=== PATIENT | female | born 1985 | race Caucasian/White ===

== ENCOUNTER 2017-01-19 19:55 | Emergency (ER) | payer MEDICAID ==
[~2017-01-19] VITALS: Ht 180.3 cm; Wt 108.9 kg
[~2017-01-19 19:55] MED LIST: AMOX-358 PO; AZIT250T PO; AZIT250T5 PO; BUDE10.2 IH; CODE118S2 PO; FLUC150T PO; HYDR-3062 PO; HYDR-757 PO; IBUP-2055 PO; LEVO500T2 PO; PRD20T PO; RT-ALBUINH IH
--- NOTE | 2017-01-19 20:14 | ED Upper Extremity ---
General Chief Complaint: Upper Extremity Stated Complaint: LT HAND/WRIST PAIN Source: patient Exam Limitations: no limitations History of Present Illness Time seen by provider: 20:11 Initial Comments To ER with bruising to the left hand, pain in the left hand and left forearm and pain in the back of her head after she slipped and fell on one of her daughters toys at home. She complains of a headache and dizziness Onset: this evening Severity: moderate Pain/Injury Location: left forearm, left wrist Modifying Factors: Worse With Movement Allergies and Home Medications Allergies Coded Allergies: No Known Drug Allergies (Unverified , 03/26/15) Home Medications Albuterol Sulfate 8.5 Gm Hfa.aer.ad, 1-2 PUFF IH PRN, (Reported) Budesonide/Formoterol Fumarate 10.2 Gm Hfa.aer.ad, 2 PUFF IH BID, (Reported) Lisinopril 5 Mg Tablet, #30 (Reported) [Benadryl] , (Reported) Time Seen by Provider: 20:11 Constitutional: see HPI EENTM: see HPI Respiratory: no symptoms reported Cardiovascular: no symptoms reported Genitourinary: no symptoms reported Musculoskeletal: see HPI Skin: no symptoms reported Psychiatric/Neurological: No Symptoms Reported Past Ncjybai-Suzzhy-Tdidjf Hx Patient Social History Alcohol Use: Denies Use Recreational Drug Use: No Smoking Status: Current Everyday Smoker Type Used: Cigarettes 2nd Hand Smoke Exposure: Yes Recent Foreign Travel: No Contact w/Someone Who Travel: No Recent Hopitalizations: No Immunizations Up To Date Tetanus Booster (TDap): Unknown Seasonal Allergies Seasonal Allergies: Yes Surgeries HX Surgeries: Yes Surgeries: Tonsillectomy Respiratory Hx Respiratory Disorders: Yes Respiratory Disorders: Asthma Cardiovascular Hx Cardiac Disorders: No Neurological Hx Neurological Disorders: No Reproductive System Hx Reproductive Disorders: No IT RECRUITER History: Tubal Ligation Genitourinary Hx Genitourinary Disorders: No Gastrointestinal Hx Gastrointestinal Disorders: No Musculoskeletal Hx Musculoskeletal Disorders: Yes Musculoskeletal Disorders: Chronic Back Pain Endocrine Hx Endocrine Disorders: No HEENT HX ENT Disorders: No Cancer Hx Cancer: No Psychosocial Hx Psychiatric Problems: No Integumentary HX Skin/Integumentary Disorder: No Blood Transfusions Hx Blood Disorders: No Adverse Reaction to a Blood Tr: No Family Medical History Significant Family History: No Pertinent Family Hx Physical Exam Vital Signs Vital Sign - Last 12Hours 01/19/17 20:02 Temp 97.5 Pulse 86 Resp 20 B/P (MAP) 153/74 Pulse Ox 97 O2 Delivery Room Air Capillary Refill : General Appearance: WD/WN, no apparent distress HEENT: PERRL/EOMI, normal ENT inspection Neck: non-tender, full range of motion Respiratory: no respiratory distress, no accessory muscle use Gastrointestinal: normal bowel sounds, non tender, soft Shoulder: normal inspection, non-tender, No asymmetry, No deformity, No ecchymosis, pain, soft tissue tenderness Elbow/Forearm: Left, pain (there is no ecchymosis, deformity, abrasion) Wrist: Yes normal inspection, Yes non-tender, Yes no evidence of injury Hand: Left, ecchymosis (ecchymosis to the dorsal aspect left hand), limited ROM Neurologic/Psychiatric: alert, normal mood/affect, oriented x 3 Skin: normal color, warm/dry Progress/Results/Core Measures Results/Orders My Orders Orders - MADHURI LEE APRN Hand, Left, 3 Views (01/19/17 20:04) Forearm, Left, 2 Views (01/19/17 20:04) Ct Head Wo (01/19/17 20:04) Vital Signs/I&O Vital Sign - Last 12Hours 01/19/17 01/19/17 20:02 21:00 Temp 97.5 97.5 Pulse 86 86 Resp 20 20 B/P (MAP) 153/74 Pulse Ox 97 97 O2 Delivery Room Air Departure Impression Impression: Primary Impression: Hand contusion Additional Impression: Mild concussion Disposition: 01 HOME, SELF-CARE Condition: Stable Departure-Patient Inst. Decision time for Depature: 20:13 Referrals: [facility] (PCP) Primary Care Physician MONTSERRAT YANG (Family) Primary Care Physician Patient Instructions: Hand Pain (DC) Add. Discharge Instructions: 1. Tylenol Motrin for pain 2. Return to ER for any concerns 3. All discharge instructions reviewed with patient and/or family. Voiced understanding. MADHURI LEE APRN Jan 19, 2017 20:14
[2017-01-19] MEDS ORDERED: Benadryl (20:19)
[2017-01-19] MEDS ORDERED: LISI-556 (20:19)
--- NOTE | 2017-01-19 20:22 | Diagnostic Imaging Report ---
PROCEDURE: CT head without contrast. TECHNIQUE: Multiple contiguous axial images were obtained through the brain without the use of intravenous contrast. INDICATION: Fall, hit head on ground. FINDINGS: The ventricles and cortical gyral pattern are normal. There is no intracranial hemorrhage. No mass effect. No extra-axial fluid collection. Basal cisterns are clear. Mastoid air cells and paranasal sinuses are clear. Bone windows show no evidence of calvarial fractures. IMPRESSION: Negative CT scan of the head without contrast. Dictated by: Dictated on workstation # [id number]
--- NOTE | 2017-01-19 20:35 | Diagnostic Imaging Report ---
INDICATION: Fall. FINDINGS: 3 views of the hand show no fractures, dislocations or other bony abnormalities. IMPRESSION: Negative left hand. Dictated by: Dictated on workstation # [id number]
--- NOTE | 2017-01-19 20:55 | Diagnostic Imaging Report ---
INDICATION: Trauma. FINDINGS: Two views show the radius and ulna to be intact. Radial head and olecranon process are in good alignment with the capitellum and trochlea. Radiocarpal joint is in good alignment. IMPRESSION: Normal left forearm. Dictated by: Dictated on workstation # [id number]
[2017-01-19 21:00] VITALS: BP 153/74
== END 2017-01-19 21:00 | disposition home or self-care (01) ==
LOC: EDUNIT# 19:55 → ER 19:59
DX: S06.0X9A Concussion with loss of consciousness of unspecified duration, initial encounter (principal); S60.222A Contusion of left hand, initial encounter; F17.210 Nicotine dependence, cigarettes, uncomplicated; W18.31XA Fall on same level due to stepping on an object, initial encounter; Y92.89 Other specified places as the place of occurrence of the external cause
CPT/HCPCS: 70450; 73090; 73130; 99282

== ENCOUNTER 2017-03-13 22:51 | Emergency (ER) | payer MEDICAID ==
[~2017-03-13] VITALS: Ht 180.3 cm; Wt 113.4 kg
[~2017-03-13 22:51] MED LIST changes: +AZIT250T12 PO; -AZIT250T5 PO; +Benadryl; +LISI-556
[2017-03-13] MEDS ORDERED: BENZ200C51 PO (23:57)
--- NOTE | 2017-03-13 23:57 | ED Cough/URI ---
General Chief Complaint: Cough/Cold/Flu Symptoms Stated Complaint: POSS PNEUMONIA Nursing Triage Note: PT TO ED FOR C/O COUGH, CONGESTION, GENERALIZED BODY ACHES ALL ONSET AFTER HAVING A "HEAD COLD" FOR "A COUPLE OF DAYS". Source: patient Exam Limitations: no limitations History of Present Illness Time seen by provider: 23:00 Initial Comments This 31-year-old woman presents to the emergency room with primary complaint of cough. Symptoms started with congestion a couple of days ago and progressed to intense cough sometimes followed by posttussive emesis. She feels weak, dizzy, fatigued. She has chest discomfort with inspiration and cough. She uses albuterol and Symbicort at home. She has had subjective fever and chills and wonders if she has pneumonia. She has taken ibuprofen, Mucinex, Tessalon Perles without much benefit. She continues to smoke. She does have some sinus pressure and post nasal drip. Allergies and Home Medications Allergies Coded Allergies: No Known Drug Allergies (Unverified , 03/26/15) Home Medications Albuterol Sulfate 8.5 Gm Hfa.aer.ad, 1-2 PUFF IH PRN, (Reported) Benzonatate 200 Mg Capsule, 200 MG PO TID PRN for COUGH, #20 Prescribed by: MYRANDA RAO on 03/13/17 3567 Budesonide/Formoterol Fumarate 10.2 Gm Hfa.aer.ad, 2 PUFF IH BID, (Reported) Lisinopril 5 Mg Tablet, #30 (Reported) [Benadryl] , (Reported) Constitutional: see HPI EENTM: see HPI Respiratory: see HPI Cardiovascular: no symptoms reported Gastrointestinal: see HPI Genitourinary: no symptoms reported : No Musculoskeletal: no symptoms reported Skin: no symptoms reported Psychiatric/Neurological: No Symptoms Reported Hematologic/Lymphatic: No Symptoms Reported Past Eozwdue-Qaqzdl-Tmglhn Hx Patient Social History Alcohol Use: Denies Use Recreational Drug Use: No Smoking Status: Current Someday Smoker Type Used: Cigarettes 2nd Hand Smoke Exposure: Yes Recent Foreign Travel: No Contact w/Someone Who Travel: No Recent Infectious Disease Expo: No Recent Hopitalizations: No Immunizations Up To Date Tetanus Booster (TDap): Unknown Seasonal Allergies Seasonal Allergies: Yes Surgeries HX Surgeries: Yes (E sure procedure) Surgeries: Tonsillectomy Respiratory Hx Respiratory Disorders: Yes Respiratory Disorders: Asthma Cardiovascular Hx Cardiac Disorders: Yes Cardiac Disorders: Hypertension Neurological Hx Neurological Disorders: No Reproductive System : No Hx Reproductive Disorders: No CROP PICKER History: Tubal Ligation (Eashwer procedure) Genitourinary Hx Genitourinary Disorders: No Gastrointestinal Hx Gastrointestinal Disorders: No Musculoskeletal Hx Musculoskeletal Disorders: Yes Musculoskeletal Disorders: Arthritis, Chronic Back Pain Endocrine Hx Endocrine Disorders: Yes (prediabetes) Endocrine Disorders: Lupus (unofficial diagnosis) HEENT HX ENT Disorders: No Cancer Hx Cancer: No Psychosocial Hx Psychiatric Problems: No Integumentary HX Skin/Integumentary Disorder: No Blood Transfusions Hx Blood Disorders: No Adverse Reaction to a Blood Tr: No Family Medical History Significant Family History: No Pertinent Family Hx Physical Exam Vital Signs Vital Sign - Last 12Hours 03/13/17 23:06 Temp 98.5 Pulse 74 Resp 20 B/P (MAP) 135/85 Pulse Ox 99 O2 Delivery Room Air Capillary Refill : Less Than 3 Seconds General Appearance: WD/WN, mild distress HEENT: PERRL/EOMI, normal ENT inspection, TMs normal, pharyngeal erythema Neck: normal inspection Respiratory: no respiratory distress, no accessory muscle use, wheezing ( subtle wheezing and lower lung reyes. No wheezing with forced expiration. Minimal delay in expiratory phase.) Cardiovascular: regular rate, rhythm, no edema, no murmur Gastrointestinal: normal bowel sounds, non tender, soft Extremities: normal inspection, no pedal edema Neurologic/Psychiatric: broom maker II-XII nml as tested, no motor/sensory deficits, alert, normal mood/affect, oriented x 3 Skin: normal color, warm/dry Progress/Results/Core Measures Results/Orders My Orders Orders - MYRANDA MACKEY MD Chest Pa/Lat (2 View) (03/13/17 23:19) Promethazine/ Codeine Syrup (Phenergan W (03/14/17 00:00) Medications Given in ED Current Medications Medications Dose Ordered Sig/Tano Route Start Time Stop Time Status Last Admin Dose Admin Promethazine HCl/ Codeine 5 ml ONCE ONCE PO 03/14/17 00:00 03/14/17 00:02 DC 03/13/17 23:57 5 ML Vital Signs/I&O Vital Sign - Last 12Hours 03/13/17 23:06 Temp 98.5 Pulse 74 Resp 20 B/P (MAP) 135/85 Pulse Ox 99 O2 Delivery Room Air Blood Pressure Mean: 102 Progress Note : Progress Note Patient was given a dose of promethazine with codeine. Chest x-ray was unremarkable. Diagnostic Imaging Diagonstic Imaging: Xray Plain Films/CT/US/NM/MRI: chest Comments Chest x-ray viewed by me. Report not yet available. No acute abnormalities appreciated. Departure Impression Impression: Primary Impression: Acute bronchitis Qualified Codes: J20.9 - Acute bronchitis, unspecified Disposition: 01 HOME, SELF-CARE Condition: Stable Departure-Patient Inst. Decision time for Depature: 23:45 Referrals: [facility] (PCP) Primary Care Physician MONTSERRAT YANG (Family) Primary Care Physician Patient Instructions: Acute Bronchitis, Adult (DC) Add. Discharge Instructions: Continue using your inhalers as prescribed. You may use Tylenol and/or ibuprofen for pain. Discontinue use of cigarettes and switch to an alternative form of nicotine such as patches or lozenges. You may use [id number]-[id number] cough suppressants with dextromethorphan (DM). You may also use the Tessalon Perles as prescribed. Follow-up with your primary care provider if not improving or symptoms worsen. All discharge instructions reviewed with patient and/or family. Voiced understanding. Scripts Benzonatate (Benzonatate) 200 Mg Capsule 200 MG PO TID Y for COUGH, #20 CAP Prov: MYRANDA MACKEY MD 03/13/17 MYRANDA MACKEY MD Mar 13, 2017 23:57
[2017-03-14] MEDS ORDERED: PROMETHAZINE/ CODEINE SYRUP 5 ML UDC PO ONE
[2017-03-14 00:03] VITALS: BP 136/79
--- NOTE | 2017-03-14 05:53 | Diagnostic Imaging Report ---
EXAM: CHEST PA/LAT (2 VIEW) INDICATION: Cough. COMPARISON: Chest radiograph 07/01/2016. FINDINGS: Normal heart size and pulmonary vascularity. Lungs are well expanded. No focal pulmonary opacity, pleural effusion or pneumothorax. Osseous structures are unremarkable. IMPRESSION: Negative chest. Dictated by: Dictated on workstation # [id number]
== END 2017-03-14 00:03 | disposition home or self-care (01) ==
LOC: EDUNIT# 22:51 → ER 22:53
DX: J20.9 Acute bronchitis, unspecified (principal); J45.909 Unspecified asthma, uncomplicated; I10 Essential (primary) hypertension; M19.90 Unspecified osteoarthritis, unspecified site; F17.210 Nicotine dependence, cigarettes, uncomplicated; Z98.51 Tubal ligation status; Z90.89 Acquired absence of other organs
CPT/HCPCS: 71020; 99283

== ENCOUNTER → 2018-06-05 | Outpatient (CLI) | payer MEDICAID ==
[~2018-06-05] MED LIST changes: +BENZ200C51 PO; -CODE118S2 PO; +CODE118S4 PO; +HYDR-4226 PO; -HYDR-757 PO
--- NOTE | 2018-06-05 13:36 | Diagnostic Imaging Report ---
PROCEDURE: US Non-ob pelvis comp/trans. TECHNIQUE: Multiple realtime grayscale images were obtained of the pelvis in various projections endovaginally. Transabdominal imaging was also performed. INDICATION: Pelvic pain. FINDINGS: The uterus measures 8.7 x 6.8 x 4.8 cm. Endometrium is approximately 3 mm in thickness. No myometrial mass is identified. Left ovary cannot be visualized due to bowel gas. Right ovary measures 3.5 x 3.7 x 3.3 cm. There is blood flow to the right ovary. There is a 2.5 x 1.9 cm cyst involving the right ovary. No free fluid is seen. IMPRESSION: Small right ovarian cyst. The left ovary cannot be visualized. No other significant abnormality is seen. Dictated by: Dictated on workstation # [id number]
== END ==
LOC: RAD 12:06
PROVIDERS: ATTEND Nurse Practitioner
DX: N83.201 Unspecified ovarian cyst, right side (principal)
CPT/HCPCS: 76830; 76856

== ENCOUNTER → 2018-09-01 | Outpatient (CLI) | payer MEDICAID ==
[~2018-09-01] MED LIST changes: +IOHEXOL 300 MG/ML 50 ML (OMNIPAQUE 300) VIAL IV ONE; +RECEIVED CONTRAST (Hold Metformin) IV SCH
--- NOTE | 2018-09-01 14:39 | Diagnostic Imaging Report ---
Indication: Patient with bilateral Essure devices within the fallopian tubes. Study is performed to evaluate for tubal occlusion. Procedure was performed by Dr. Kelle Proctor. Speculum was placed and cervical HSG catheter was inserted and a balloon was inflated. Approximately 5 cc of Omnipaque-300 contrast was injected under fluoroscopic observation. Spot films over the pelvis were obtained. Total of 55 seconds of fluoroscopy was utilized. Preliminary radiograph demonstrates a bilateral Essure devices within the pelvis. Post injection images demonstrate normal opacification of the endometrial canal. No contrast is identified in the fallopian tubes consistent with bilateral tubal occlusion. No filling defects are seen within the endometrial canal. Impression: Bilateral Essure devices creating bilateral tubal occlusion. Dictated by: Dictated on workstation # [id number]
== END ==
LOC: RAD 10:44
PROVIDERS: ATTEND Obstetrics & Gynecology
DX: N97.1 Female infertility of tubal origin (principal); Z97.5 Presence of (intrauterine) contraceptive device
CPT/HCPCS: 58340; 74740

== ENCOUNTER → 2018-09-14 | Outpatient (CLI) | payer MEDICAID ==
[~2018-09-14] VITALS: Ht 180.3 cm; Wt 127.6 kg
[~2018-09-14] MED LIST changes: +IBUP-1780 PO; -IOHEXOL 300 MG/ML 50 ML (OMNIPAQUE 300) VIAL IV ONE; +METF-397 PO; -RECEIVED CONTRAST (Hold Metformin) IV SCH
[2018-09-14 14:28] VITALS: BP 138/82
[2018-09-14 15:13] LABS: BASOPHILS # (AUTO) 0.1 10^3/uL (0.0-0.1); BASOPHILS % (AUTO) 1 % (0-10); EOSINOPHILS # (AUTO) 0.2 10^3/uL (0.0-0.3); EOSINOPHILS % (AUTO) 2 % (0-10); HEMATOCRIT 40 % (35-52); HEMOGLOBIN 13.6 G/DL (11.5-16.0); LYMPHOCYTES # (AUTO) 3.6 X 10^3 (1.0-4.0); LYMPHOCYTES % (AUTO) 33 % (12-44); MEAN CORPUSCULAR HEMOGLOBIN 32 PG (25-34); MEAN CORPUSCULAR HGB CONC 34 G/DL (32-36); MEAN CORPUSCULAR VOLUME 95 FL (80-99); MONOCYTES # (AUTO) 0.6 X 10^3 (0.0-1.0); MONOCYTES % (AUTO) 6 % (0-12); NEUTROPHILS # (AUTO) 6.5 X 10^3 (1.8-7.8); NEUTROPHILS % (AUTO) 59 % (42-75); PLATELET COUNT 271 10^3/uL (130-400); RED CELL DISTRIBUTION WIDTH 12.6 % (10.0-14.5)
[2018-09-14 15:17] LABS: BILIRUBIN,URINE NEGATIVE (NEGATIVE); CLARITY,URINE CLEAR; COLOR,URINE YELLOW; GLUCOSE, URINE (UA) NEGATIVE (NEGATIVE); KETONES,URINE NEGATIVE (NEGATIVE); LEUKOCYTE ESTERASE ,URINE 2+ (NEGATIVE); NITRITE,URINE POSITIVE (NEGATIVE); PH,URINE 5 (5-9); PROTEIN,URINE 1+ (NEGATIVE); UROBILINOGEN,URINE 1 MG/DL (NORMAL)
[2018-09-14 15:38] LABS: BACTERIA,URINE LARGE /HPF; RBC,URINE 0-2 /HPF
[2018-09-14 15:39] LABS: CALCIUM OXALATE CRYSTALS,UR FEW /LPF
== END ==
LOC: PREOP 14:12
PROVIDERS: ATTEND Obstetrics & Gynecology
DX: Z01.812 Encounter for preprocedural laboratory examination (principal); Z11.2 Encounter for screening for other bacterial diseases; N92.1 Excessive and frequent menstruation with irregular cycle
CPT/HCPCS: 36415; 81000; 85025; 86850; 86900; 86901; 87077; 87081; 87088

== ENCOUNTER 2018-09-19 07:05 | Day surgery (SDC) | payer MEDICAID ==
[~2018-09-19] VITALS: Ht 177.8 cm; Wt 123.9 kg
[2018-09-19] MEDS ORDERED: metroNIDAZOLE 500MG/100ML IVPB 100 ML IV ONE (07:15)
[2018-09-19] MEDS ORDERED: ceFAZolin INJECTION 1,000 MG VIAL IV ONE (07:15)
[2018-09-19] MEDS: LACTATED RINGERS 1,000 ML IV PRN ×2 (07:29→11:18)
[2018-09-19] MEDS ORDERED: MIDAZOLAM 2 MG/2 ML (VERSED) VIAL ONE (07:33)
[2018-09-19] MEDS ORDERED: LIDOCAINE PF 2% 5 ML (XYLOCAINE) VIAL ONE (07:33)
[2018-09-19] MEDS ORDERED: proPOfol 200 MG/20 ML (DIPRIVAN) VIAL IV ONE (07:33)
[2018-09-19] MEDS ORDERED: ONDANSETRON 4 MG/2 ML (SDV) Z0FRAN ONE (07:33)
[2018-09-19] MEDS ORDERED: ROCURONIUM 10 MG/ML 5 ML SYRINGE IV ONE ×2 (07:33→11:51)
[2018-09-19] MEDS ORDERED: fentaNYL INJECTION 100 MCG/2 ML AMP ONE (07:33)
[2018-09-19 07:39] VITALS: BP 126/71
[2018-09-19] MEDS ORDERED: SEVOFLURANE (ULTANE) 15 ML INHAL SOLN ONE ×12 (07:44→12:51)
[2018-09-19] MEDS ORDERED: NS (IVPB) 50 ML ONE (07:56)
[2018-09-19] MEDS ORDERED: NS (IVPB) 100 ML ONE (08:14)
[2018-09-19] MEDS ORDERED: VASOPRESSIN INJECTION 20 UNIT/ML VIAL ONE (08:14)
[2018-09-19] MEDS ORDERED: BUP/EPI 0.5% 1:200,000 (SENSORCAINE) 30 ML VIAL ONE (08:14)
[2018-09-19] MEDS ORDERED: ESTRADIOL VAGINAL CREAM 42.5 GM (ESTRACE) VG ONE (08:14)
[2018-09-19] MEDS ORDERED: DEXAMETHASONE 10 MG/ML (DECADRON) 1 ML VIAL ONE (10:38)
[2018-09-19] MEDS ORDERED: fentaNYL INJECTION 250 MCG/5 ML AMP ONE (11:52)
[2018-09-19] MEDS ORDERED: KETOROLAC 30 MG/ML VIAL ONE (12:50)
[2018-09-19] MEDS: KETOROLAC 30 MG/ML VIAL IV PRN ×2 (13:30→20:08)
[2018-09-19] MEDS ORDERED: SIMETHICONE 80 MG (MYLICON) CHEW PO PRN (13:45)
[2018-09-19] MEDS ORDERED: ONDANSETRON 4 MG/2 ML (SDV) Z0FRAN IV PRN (13:45)
[2018-09-19] MEDS ORDERED: HYDROmorphone 2 MG/ML VIAL (DILAUDID) IV PRN (13:45)
[2018-09-19] MEDS ORDERED: ZOLPIDEM 5 MG (AMBIEN) TAB PO PRN (13:45)
[2018-09-19] MEDS ORDERED: DOCUSATE SODIUM 100 MG (COLACE) CAP PO PRN (13:45)
[2018-09-19] MEDS ORDERED: morphine INJ 10 MG/ML 1ML (SYR OR VIAL) ONE (13:45)
[2018-09-19] MEDS ORDERED: ANTACID SUSP 30 ML UDC (MYLANTA) PO PRN (13:45)
--- NOTE | 2018-09-19 13:54 | Operative Report ---
Operative Report Date of Procedure/Surgery Sep 19, 2018 Surgeon (s) NEIL TORRES DO Window Machine Operator (s): Luisa Martinez APRN; saravanant nec to retract important neurovas structures Post-Operative Diagnosis Incomplete uterovaginal prolapse rectocele stress incontinence Essure Procedure Performed RaTH, bilateral salpingectomy, rectocele repair and perineorrhaphy, Solyx pubovaginal sling Description of Procedure Anesthesia Type: General Estimated blood loss (mL): 150 Specimen(s) collected/removed uterus, bilateral tubes Description of the Procedure After informed consent was obtained, patient was taken into the operating room where general anesthetic was found to be adequate. She was prepped and draped in the usual sterile fashion in the dorsal lithotomy position. A Pablo catheter was placed. A speculum was placed in the vagina. The cervix was visualized and was prolapsed to the introitus. The anterior lip was grasped with a sharp toothed tenaculum. The uterus was sounded and depth was approximately 10 centimeters. I placed the Melisa device. And then set the Melisa to 10 cm and a 3.5 cm collar was advanced over the cervix. I inserted the Melisa without difficulty, inflating the balloon and securing it around the fornix of the cervix. The collar was then secured with sutures at 12 o'clock. Attention was then turned to the patient's abdomen. A supraumbilical incision was made about 10 mm. A Veress needle was inserted and I had difficulty confirming intraabdominal placement, but was eventually able to confirm with a drop in pressure and the saline drop test. I then insufflated the abdomen to a maximum of 15 mmHg with warmed CO2 gas. I then placed an 8 mm trocar and then the Da Quiana camera and intraperitoneal placement was confirmed. I then determined the procedure could be continued robotically. The first robotic port was placed about 15 cm lateral to the right and left of the umbilical placement and slightly inferior. These are both 8 mm trocars. These were placed under direct visualization of the laparoscope. 0.25% Marcaine was injected prior to placement of all trocars. When all placements were confirmed, the patient was placed in steep Trendelenburg allowing adequate visualization and the robot was brought in for docking. The docking was accomplished without difficulty. A survey of the pelvis confirmed the above mentioned findings. The Essure devices were in the tube and there was minimal adhesion associated with this. I was able to visualize the round ligaments bilaterally and grasped them and cauterized with bipolar cautery and then cut with my blanca. At this point, I then did bilateral salpingectomy. I cut along the mesosalpinx with the monopolar blanca and then dissected up to the cornu bilaterally. I then moved to the uteroovarian ligaments. I sealed the vessel and transected bilaterally using the bipolar cautery and then cut with the monopolar blanca. I then moved my dissection to the posterior leaves of the broad ligament. I dissected the posterior leaves of the broad ligament off the uterine arteries skeletonizing them bilaterally. I then took a second clamp with the bipolar cautery and with the blanca, transected the vessels away from the lateral aspect to the cervical stroma. I dissected the anterior peritoneum off the lower uterine segment. I continually pushed the bladder back and I took excessively great care and I was eventually able to dissect the vesicouterine peritoneum off the lower uterine segment. I then dissected in a V fashion towards the midline between the uterosacral ligaments. This allowed me to skeletonize the uterine vessels bilaterally. The balloon on the MELISA was insufflated. This allowed me to see the MELISA circumferentially. I then performed a colpotomy anteriorly and then amputate with cervix away from the vaginal fornix. I then continued the colpotomy circumferentially. The assistant golf course superintendent removed the uterus through the vagina. A sponge was left in the vagina to maintain pneumoperitoneum. I then began closure of the vaginal cuff. The uterus was left in the vagina to maintain pneumoperitoneum. I closed the apices of the vaginal cuff with 2-0 Vicryl V lock sutures with a colposuspension through the uterosacral ligaments. This suspended the apices of the vaginal cuff. I extended this to the midline from both sides and overlapped the V lock sutures in the midline. Excellent closure is noted and hemostasis is achieved. She had a very deep enterocele. I now did a colpotomy but reducing the enterocele with two layers of the pursestring of 0-Vicryl closing the enterocele space and shortening the uterosacral ligaments bilaterally. All the needles were removed from the patient's abdomen. Patient was now repositioned for the vaginal portion of the procedure. Now, A 1 cm incision was made in the suburethral space with a scalpel about 1.5 cm from the urethral meatus. I dissected bilaterally to the obturator membranes and then inserted the Solyx bilaterally and then tightened under the midurethra. I did a cystoscopy which was negative. There was bilateral urethral efflux of urine. I then kept 300 ml in the bladder and did a Cred. There was minimal leakage. The sling laid gently under the urethra and was not too tight. There was no intravesicular pathology. The incision was closed with 4-0 Monocryl in a running fashion. Pablo was reinserted. At this point I did a rectocele repair. I grasped the perineum on either side of the midline with the Yanna clamps and then incised the perineum in the midline. I now injected with dilute vasopressin and then u undermined with Serrano scissors and then incised in the midline. I then dissected the pubovaginal fascia and then repaired the defect in the midline with 2-0 Vicryl in interrupted mattress type sutures reducing the defect. And then excised the excess epithelium and then made a pyramidal incision in the perineum. I now repaired the perineum with 3-0 vicryl and then repaired the posterior epithelial defect with 2-0 vicryl in running fashion. Vaginal pack with Estrace cream was placed. Patient was awakened and taken to the recovery room in stable condition. Following the case, instrument counts were correct. The patient was repositioned in the supine position and awakened from general anesthesia without difficulty. She was taken to recovery in stable condition. She will be observed overnight. Findings of the Procedure Essure in bilateral tubes enlarged boggy uterus 2-3+ rectocele with scarred perineum > 60 degree rotation of the urethra Allergies and Home Medications Allergies Coded Allergies: iodine (Verified Allergy, Mild, RASH, 09/14/18) Home Medications Acetaminophen 500 Mg Tablet, 1,000 MG PO Q8H Prescribed by: NEIL TORRES on 09/20/18 0837 Albuterol Sulfate 8.5 Gm Hfa.aer.ad, 1-2 PUFF IH PRN, (Reported) Docusate Sodium 100 Mg Capsule, 100 MG PO BID PRN for CONSTIPATION-1ST LINE Prescribed by: NEIL TORRES on 09/20/18 0837 Ibuprofen 600 Mg Tablet, 600 MG PO Q6H PRN for PAIN-MILD Prescribed by: NEIL TORRES on 09/20/18836 Metformin HCl 500 Mg Tablet, 500 MG PO BID, (Reported) [Oxycodone Hcl] 5 MG TAB, 5-10 MG PO Q4H PRN for PAIN-SEVERE 1-2 po q 4-6 hrs prn pain Prescribed by: NEIL TORRES on 09/20/18836 Patient Home Medication List Home Medication List Reviewed: Yes NEIL TORRES DO Sep 19, 2018 13:54
[2018-09-19] MEDS ORDERED: PROMETHAZINE INJ 25 MG/ML (PHENERGAN) AMP IVP ONE (14:00)
[2018-09-19] MEDS ORDERED: ONDANSETRON 4 MG/2 ML (SDV) Z0FRAN IVP PRN (14:00)
[2018-09-19] MEDS ORDERED: HYDROmorphone 2 MG/ML VIAL (DILAUDID) IV ONE (14:00)
[2018-09-19] MEDS ORDERED: MEPERIDINE (DEMEROL) INJ 50 MG/ML IVP ONE (14:00)
[2018-09-19] MEDS ORDERED: morphine INJ 10 MG/ML 1ML (SYR OR VIAL) IVP ONE (14:00)
--- NOTE | 2018-09-19 14:02 | Progress Note-Pre Operative ---
Pre-Operative Progress Note H&P Reviewed The H&P was reviewed, patient examined and no changes noted. Date Seen by Provider: Sep 19, 2018 Time Seen by Provider: 09:30 Date H&P Reviewed: Sep 19, 2018 Time H&P Reviewed: 09:00 Pre-Operative Diagnosis: chronic pain, incomplete uterovaginal prolapse, Alayna NEIL Livingston DO Sep 19, 2018 14:02
[2018-09-19] MEDS ORDERED: PROMETHAZINE INJ 25 MG/ML (PHENERGAN) AMP ONE (14:23)
--- NOTE | 2018-09-19 14:30 | NUR ---
pt transferred to room via bed with PACU staff @ side. report received from Arturo WOODSON. care assumed of pt.
--- NOTE | 2018-09-19 14:44 | Anesthesia-General Post-Op ---
General Patient Condition Mental Status/LOC: Same as Preop Cardiovascular: Satisfactory Nausea/Vomiting: Absent Respiratory: Satisfactory Pain: Controlled Complications: Absent Post Op Complications Complications None Follow Up Care/Instructions Patient Instructions None needed. Anesthesia/Patient Condition Patient Condition Patient is doing well, no complaints, stable vital signs, no apparent adverse anesthesia problems. EMIL LOPEZ DO Sep 19, 2018 14:44
[2018-09-19 14:45] VITALS: BP 121/76
--- NOTE | 2018-09-19 14:45 | NUR ---
initial assessment completed. see interventions for further. vs taken. lap sites x3, D/I. perry to DD with dark, yellow urine noted in chamber. SCD's to LE's.
[2018-09-19] MEDS: LACTATED RINGERS 1,000 ML IV SCH ×2 (14:58→22:48)
[2018-09-19] MEDS: ACETAMINOPHEN 500 MG TAB (TYLENOL) PO SCH (16:42)
--- NOTE | 2018-09-19 17:40 | NUR ---
pt assisted up to BR. requesting to have BM.
[2018-09-19 17:45] VITALS: BP 121/61
--- NOTE | 2018-09-19 17:45 | NUR ---
pt sitting up in bed, eating regular meal. family @ side.
--- NOTE | 2018-09-19 18:25 | NUR ---
was called about pt's request for catheter and vaginal packing to be d/c'd. instructed to keep packing and perry in until a.m.
--- NOTE | 2018-09-19 18:36 | NUR ---
reviewed POC with pt and family members. pt requesting to "go downstairs in wheel chair". pt states hx of smoker. informed pt of instability to leave floor r/t recent surgery. nicotine patch offered. refused, "I'm allergic".
--- NOTE | 2018-09-19 19:30 | NUR ---
report given to next shift.
[2018-09-19 20:08] VITALS: BP 117/62
--- NOTE | 2018-09-19 20:43 | NUR ---
Pt rings call light, pt reports not hitting call light while half out of bed. RN asks if pt needs help pt states "Well you can help if you want, I just didn't call you in here." Pt reports wanting leg portion of bed flat. RN pressing button to de-elevate the knees. Pt states, "Well now you're just undoing everything I did. Rodrigue, she doesn't know what shes doing come help me." RN states "Let me know when you need something." Rn exits room.
[2018-09-20] MEDS: ACETAMINOPHEN 500 MG TAB (TYLENOL) PO SCH ×2 (01:05→08:38)
[2018-09-20 01:06] VITALS: BP 104/65
[2018-09-20] MEDS ORDERED: KETOROLAC 30 MG/ML VIAL ONE (02:02)
[2018-09-20] MEDS: KETOROLAC 30 MG/ML VIAL IV PRN (02:13)
[2018-09-20 06:25] VITALS: BP 118/62
--- NOTE | 2018-09-20 06:25 | NUR ---
vag packing out in tact, no ss distress noted.
[2018-09-20] MEDS ORDERED: IBUPROFEN 600 MG (MOTRIN) TAB PO PRN (06:30)
[2018-09-20] MEDS: LACTATED RINGERS 1,000 ML IV SCH (06:46)
[2018-09-20 08:24] VITALS: BP 121/57
--- NOTE | 2018-09-20 08:24 | NUR ---
initial shift assessment completed, see interventions for further. pt reports voiding, 100cc urine noted in collected hat. pt requesting to smoke. IV site dc'd.
[2018-09-20] MEDS ORDERED: IBUP-844 PO (08:37)
[2018-09-20] MEDS ORDERED: Oxycodone Hcl PO (08:37)
[2018-09-20] MEDS ORDERED: DOCU100C37 PO (08:37)
[2018-09-20] MEDS ORDERED: ACET-77 PO (08:37)
--- NOTE | 2018-09-20 08:38 | NUR ---
here. dismissal orders received.
--- NOTE | 2018-09-20 08:39 | NUR ---
pt ambulates off unit with @ side.
--- NOTE | 2018-09-20 08:40 | Discharge Inst-Women's Service ---
Discharge Inst-Women's Serv Depart Medication/Instructions New, Converted or Re-Newed RX: RX on Chart Instructions no lifting over 25 lbs no driving for 1 week. nothing in the vagina for 12 weeks Final Diagnosis menorrhagia chronic pelvic pain Essure incomplete genital prolapse Stress incontinence Consults/Follow Up Additional Follow Up: Yes Activity Activity: Activity as Tolerated Driving Instructions: No Driving for 1 Week NO SMOKING: NO SMOKING Nothing Inside Vagina: No Douching, No [place], No Tampons Diet Discharge Diet: No Restrictions Symptoms to Report to : Swelling Increased, Bleeding Excessive, Pain Increased, Fever Over 101 Degrees F, Vaginal Bleeding Increase, Vaginal Discharge Foul For Any Problems or Questions: Contact Your Physician Skin/Wound Care Infection Signs and Symptoms: Increased Redness, Foul Odor of Wound, Increased Drainage, Skin Itchy or Has a Rash, Increased Swelling, Temperature Above 101 F Operative Area Clean and Dry: Do Not Remove Bandage Stitches/[place]/Dermabond: Dermabond Bathing Instructions: NEIL Nieves DO Sep 20, 2018 08:40
--- NOTE | 2018-09-20 08:42 | Progress Note-Standard ---
Standard Progress Note Progress Notes/Assess & Plan Date Seen by a Provider: Sep 20, 2018 Time Seen by a Provider: 08:40 Progress/Assessment & Plan Patient has voided and is ready to go home. 09/20/18 09/20/18 01:06 06:25 Temp 99.0 98.1 Pulse 74 84 Resp 18 18 B/P (MAP) 104/65 (78) 118/62 (80) Pulse Ox 97 96 O2 Delivery Room Air Room Air 09/20/18 00:00 Output Total 1725 ml Balance -1725 ml POD #1 s/p RaTH, bilateral salpingectomy, solyx PV sling and perineorrhaphy, rectocele repair. NEIL TORRES DO Sep 20, 2018 08:42
--- NOTE | 2018-09-20 09:05 | NUR ---
pt returned to room from smoking. c/o pain.
--- NOTE | 2018-09-20 09:37 | NUR ---
dismissal instructions given, pt reports understanding. reviewed follow up appointments and Rx's. signature page signed, placed on chart.
--- NOTE | 2018-09-20 09:45 | NUR ---
pt ambulated to private vehicle with this RN and @ side. pt stable with no sx's of distress noted.
== END 2018-09-20 09:45 | disposition home or self-care (01) ==
LOC: SDC 07:05 → WS 14:30 → SDC 09-20 09:45
PROVIDERS: ATTEND Obstetrics & Gynecology
DX: N81.2 Incomplete uterovaginal prolapse (principal); N92.1 Excessive and frequent menstruation with irregular cycle; N39.3 Stress incontinence (female) (male); N88.8 Other specified noninflammatory disorders of cervix uteri; E11.43 Type 2 diabetes mellitus with diabetic autonomic (poly)neuropathy; J45.909 Unspecified asthma, uncomplicated; G47.33 Obstructive sleep apnea (adult) (pediatric); F17.210 Nicotine dependence, cigarettes, uncomplicated; Z79.84 Long term (current) use of oral hypoglycemic drugs; Z79.899 Other long term (current) drug therapy
CPT/HCPCS: 82962; 84703; 86850; 86900; 86901; 88307; 94664